=== PATIENT | male | born 1960 | race African-American/Black ===

== ENCOUNTER 2017-01-22 15:00 | Observation (INO) | payer OTHER ==
[~2017-01-22] VITALS: Ht 175.3 cm; Wt 105.4 kg
[~2017-01-22 15:00] MED LIST: AMLODIPINE BESY10 MG PO; APRESOLINE25 MG PO; BENICAR HCT 401 EAC1 PO; CEFDINIR300 MG PO; COREG12.5 M1 PO; COZAAR100 MG PO; COZAAR50 MG PO; FLEXERIL10 MG PO; HYDROCHLOROTHIA25 MG PO; LABETALOL HCL100 MG PO; LABETALOL HCL200 MG PO; LASIX20 MG PO; LIPITOR40 MG PO; LO-DOSE ASPIRIN81 M1 PO; LOSARTAN POTASS50 MG PO; METOPROLOL SUC100 MG PO; METOPROLOL TART50 MG PO; MOTRIN600 MG PO; NORCO 5/3251 TABLET PO; THERAGRAN1 TABLET PO; TOPROL XL100 MG PO; TRAMADOL HCL50 MG PO; VENTOLIN HFA18 GM IH
[2017-01-22 15:48] LABS: HEMATOCRIT 39.5 % (38.0-50.0); MCH 28.9 PG (29.0-34.0); MCHC 36.5 G/DL (30.0-36.0); MCV 79.2 FL (86-99); RBC DIS.WIDTH-CV 14.1 % (11.8-14.6); RBC DIS.WIDTH-SD 40.3 % (39-53); RED BLOOD COUNT 4.99 M/uL (4.00-5.50); WHITE BLOOD COUNT 7.6 K/uL (4.1-10.2)
[2017-01-22 16:04] LABS: CHLORIDE 110 mEq/L (99-109); POTASSIUM 3.8 mEq/L (3.7-5.4); SODIUM 141 mEq/L (136-147)
[2017-01-22 16:06] LABS: GLUCOSE 104 mg/dL (70-99)
[2017-01-22 16:07] LABS: ANION GAP 9 MEQ/L (2-14)
[2017-01-22 16:10] LABS: GFR ESTIMATE (CALCULATED) > 59 mL/min/
[2017-01-22 16:11] LABS: UREA NITROGEN (BUN) 19 mg/dL (9-23)
[2017-01-22 16:17] LABS: TROP-I INTERPRETATION NEGATIVE; TROPONIN-I < 0.01 ng/mL (0.0-0.30)
[2017-01-22 16:30] LABS: HEMATOLOGY COMMENT 1 SN; PLAT.SUFFICIENCY ADEQUATE; PLATELET COUNT 229 K/uL (156-360)
[2017-01-22] MEDS ORDERED: VALSARTAN-HCTZ1 EAC3 PO (16:46)
[2017-01-22] MEDS ORDERED: METOPROLOL SUCC50 MG PO (16:47)
[2017-01-22] MEDS ORDERED: TIZANIDINE HCL2 MG PO (16:48)
[2017-01-22] MEDS ORDERED: INCRUSE ELLI62.5 MCG IH (18:02)
[2017-01-22] MEDS ORDERED: PROTONIX40 MG PO (18:02)
[2017-01-22 19:42] LABS: TROP-I INTERPRETATION NEGATIVE; TROPONIN-I < 0.01 ng/mL (0.0-0.30)
[2017-01-22 20:35] VITALS: BP 142/87
[2017-01-22 20:47] LABS: DIRECT BILIRUBIN 0.5 mg/dL (0.0-0.3); SAMPLE HEMOLYSIS CHECK 0; SAMPLE ICTERIC CHECK 0; SAMPLE LIPEMIA CHECK 0; TOTAL BILIRUBIN 1.4 MG/DL (0.0-1.0)
[2017-01-22 20:53] LABS: ALKALINE PHOSPHATASE 257 IU/L (3-129); HDL CHOLESTEROL 55 MG/DL (Desirable>=40); LDL CHOLESTEROL 103 mg/dL (Desirable<100); LIPASE 123 U/L (1.0-51.0); NON-HDL CHOLESTEROL 143 mg/dL (Desirable<160); TOTAL CHOLESTEROL 198 mg/dL (Desirable<200); TRIGLYCERIDES 198 MG/DL (Normal: <150)
[2017-01-22 21:25] LABS: Estimated Average Glucose 111 mg/dL (70-123)
[2017-01-22 22:15] LABS: HEMOGLOBIN A1c (GLYCOHEMOGLOB) 5.5 % HGB (Below 5.7)
[2017-01-23 00:01] VITALS: BP 140/67
[2017-01-23 01:20] LABS: TROP-I INTERPRETATION NEGATIVE; TROPONIN-I < 0.01 ng/mL (0.0-0.30)
[2017-01-23 01:22] LABS: ADD MIUA? NO; BILIRUBIN NEGATIVE; BLOOD NEGATIVE; COLOR YELLOW ((YELLOW)); GLUCOSE (STRIP) NEGATIVE; KETONES NEGATIVE; LEUKOCYTES NEGATIVE; NITRITE NEGATIVE; PROTEIN (STRIP) NEGATIVE; SPECIFIC GRAVITY 1.013 (1.000-1.030); UCUL ADDED? NO
[2017-01-23 09:06] LABS: TROP-I INTERPRETATION NEGATIVE; TROPONIN-I < 0.01 ng/mL (0.0-0.30)
[2017-01-23 09:46] LABS: ALKALINE PHOSPHATASE 253 IU/L (3-129); DIRECT BILIRUBIN 0.3 mg/dL (0.0-0.3); TOTAL BILIRUBIN 1.3 MG/DL (0.0-1.0)
[2017-01-23 12:03] VITALS: BP 135/85
[2017-01-23 12:56] LABS: HBSG INDEX 0.29
[2017-01-23 12:57] LABS: ANTI-HEPATITIS A VIRUS (IGM) Nonreactive
[2017-01-23 12:59] LABS: ANTI-HEPATITIS B CORE (IGM) Nonreactive; HBC IgM INDEX 0.12
[2017-01-23 13:18] LABS: HPCA INDEX 13.72
[2017-01-23 16:35] VITALS: BP 132/82
[2017-01-23 19:59] LABS: AMYLASE 57 IU/L (1-118)
[2017-01-23 20:30] VITALS: BP 119/81
[2017-01-23 23:40] VITALS: BP 134/72
[2017-01-24 05:00] VITALS: BP 140/79
[2017-01-24 07:21] VITALS: BP 142/88
[2017-01-24 10:49] VITALS: BP 158/73
[2017-01-24 10:58] LABS: EOSINOPHIL (%) 2.3 % (0-5); EOSINOPHIL COUNT 0.2 K/uL (0-0.3); HEMATOCRIT 41.1 % (38.0-50.0); IMMATURE GRANULOCYTE (%) 0.5 % (0.0-0.7); INSTRUMENT ABS NEUTROPHIL CT 4.2 K/uL; LYMPHOCYTE COUNT 2.6 K/uL (1.0-2.8); MCH 28.6 PG (29.0-34.0); MCHC 35.5 G/DL (30.0-36.0); MCV 80.6 FL (86-99); MEAN PLAT.VOLUME 11.7 uM^3 (9.0-12.4); MONOCYTE COUNT 0.7 K/uL (0-0.8); NEUTROPHIL (%) 54.3 % (45-76); NEUTROPHIL COUNT 4.2 K/uL (1.8-6.4); PLATELET COUNT 243 K/uL (156-360); RBC DIS.WIDTH-CV 14.4 % (11.8-14.6); RBC DIS.WIDTH-SD 42.2 % (39-53); WHITE BLOOD COUNT 7.8 K/uL (4.1-10.2)
[2017-01-24 11:51] LABS: ALKALINE PHOSPHATASE 248 IU/L (3-129); ANION GAP 7 MEQ/L (2-14); CHLORIDE 103 MEQ/L (99-109); DIRECT BILIRUBIN 0.4 mg/dL (0.0-0.3); GFR ESTIMATE (CALCULATED) > 59 mL/min/; GLUCOSE 97 mg/dL (70-99); LIPASE 54 U/L (1.0-51.0); POTASSIUM 4.4 MEQ/L (3.7-5.4); SAMPLE HEMOLYSIS CHECK 0; SAMPLE ICTERIC CHECK 0; SAMPLE LIPEMIA CHECK 0; SODIUM 138 MEQ/L (136-147); TOTAL BILIRUBIN 1.2 MG/DL (0.0-1.0); UREA NITROGEN (BUN) 21 mg/dL (9-23)
[2017-01-24] MEDS ORDERED: VALSARTAN160 MG PO (12:08)
[2017-01-24] MEDS ORDERED: ASPIR-LOW81 MG PO (12:08)
== END 2017-01-24 13:21 | disposition home or self-care (01) ==
LOC: EME 15:00 → 5WEST 19:14 → EDOF 19:14 → 5WEST 20:13
PROVIDERS: Hospitalist; Nurse Practitioner Family
DX: R07.89 Other chest pain (principal); G45.9 Transient cerebral ischemic attack, unspecified; R47.01 Aphasia; I11.0 Hypertensive heart disease with heart failure; I50.9 Heart failure, unspecified; G43.909 Migraine, unspecified, not intractable, without status migrainosus; K21.9 Gastro-esophageal reflux disease without esophagitis; F17.200 Nicotine dependence, unspecified, uncomplicated; J44.9 Chronic obstructive pulmonary disease, unspecified; E78.5 Hyperlipidemia, unspecified; K80.50 Calculus of bile duct without cholangitis or cholecystitis without obstruction; R79.89 Other specified abnormal findings of blood chemistry; B19.20 Unspecified viral hepatitis C without hepatic coma; E83.52 Hypercalcemia; I42.9 Cardiomyopathy, unspecified; E66.9 Obesity, unspecified; Z68.34 Body mass index [BMI] 34.0-34.9, adult; R47.02 Dysphasia; G47.30 Sleep apnea, unspecified; I34.0 Nonrheumatic mitral (valve) insufficiency
CPT/HCPCS: 70140; 70450; 70551; 71020; 74177; 74183; 80048; 80053; 80061; 80074; 80076; 80400; 81003; 82024 90; 82150; 82248; 82533 91; 83036; 83690; 84484; 85025; 85027; 93005; 93880; 94640; 94640 76; 99281; 99285; G0378

== ENCOUNTER 2017-02-09 14:58 | Inpatient (IN) | payer OTHER ==
[~2017-02-09] VITALS: Ht 175.3 cm; Wt 97.7 kg
[~2017-02-09 14:58] MED LIST changes: +ASPIR-LOW81 MG PO; +INCRUSE ELLI62.5 MCG IH; +METOPROLOL SUCC50 MG PO; +PROTONIX40 MG PO; +TIZANIDINE HCL2 MG PO; +VALSARTAN-HCTZ1 EAC3 PO; +VALSARTAN160 MG PO
[2017-02-09 15:47] LABS: HEMATOCRIT 37.4 % (38.0-50.0); MCH 28.8 PG (29.0-34.0); MCHC 37.2 G/DL (30.0-36.0); MCV 77.6 FL (86-99); MEAN PLAT.VOLUME 12.1 uM^3 (9.0-12.4); PLATELET COUNT 217 K/uL (156-360); RBC DIS.WIDTH-CV 14.6 % (11.8-14.6); RBC DIS.WIDTH-SD 40.6 % (39-53); RED BLOOD COUNT 4.82 M/uL (4.00-5.50)
[2017-02-09 15:48] LABS: ADD MIUA? NO; BILIRUBIN SMALL; BLOOD NEGATIVE; COLOR AMBER ((YELLOW)); GLUCOSE (STRIP) NEGATIVE; KETONES NEGATIVE; LEUKOCYTES NEGATIVE; NITRITE NEGATIVE; PROTEIN (STRIP) NEGATIVE; SPECIFIC GRAVITY 1.014 (1.000-1.030); UCUL ADDED? NO
[2017-02-09 15:57] LABS: INTER. NORMALIZED RATIO 1.1; PROTHROMBIN TIME 11.4 (9.2-11.2); PTT 26.2 (25-32)
[2017-02-09 15:58] LABS: CHLORIDE 108 mEq/L (99-109); POTASSIUM 3.8 mEq/L (3.7-5.4); SODIUM 141 mEq/L (136-147)
[2017-02-09 16:00] LABS: GLUCOSE 115 mg/dL (70-99)
[2017-02-09 16:01] LABS: ANION GAP 11 MEQ/L (2-14)
[2017-02-09 16:02] LABS: TOTAL BILIRUBIN 7.2 mg/dL (0.0-1.0)
[2017-02-09 16:03] LABS: ALKALINE PHOSPHATASE 299 IU/L (3-129)
[2017-02-09 16:04] LABS: GFR ESTIMATE (CALCULATED) > 59 mL/min/
[2017-02-09 16:05] LABS: UREA NITROGEN (BUN) 13 mg/dL (9-23)
[2017-02-09 16:07] LABS: LIPASE 89 U/L (1.0-51.0)
[2017-02-09 17:50] LABS: AMYLASE 81 IU/L (1-118)
[2017-02-09] MEDS ORDERED: DIOVAN HCT 31 TABLE1 PO (18:18)
[2017-02-09] MEDS ORDERED: LO-DOSE ASPIRIN81 M2 PO (18:18)
[2017-02-09] MEDS ORDERED: TUMS500 MG PO (18:19)
[2017-02-09] MEDS ORDERED: ERGOCALCIF50000 UNIT PO (18:19)
[2017-02-09 21:10] VITALS: BP 150/96
[2017-02-09 23:36] VITALS: BP 172/80
[2017-02-10] VITALS (7 sets, daily range): BP systolic 145–177; BP diastolic 89–99
[2017-02-10 07:10] LABS: HEMATOCRIT 35.9 % (38.0-50.0); MCH 28.3 PG (29.0-34.0); MCHC 36.5 G/DL (30.0-36.0); MCV 77.5 FL (86-99); RBC DIS.WIDTH-CV 14.8 % (11.8-14.6); RBC DIS.WIDTH-SD 40.7 % (39-53); RED BLOOD COUNT 4.63 M/uL (4.00-5.50); WHITE BLOOD COUNT 6.9 K/uL (4.1-10.2)
[2017-02-10 07:29] LABS: ANION GAP 8 MEQ/L (2-14); CHLORIDE 105 MEQ/L (99-109); GFR ESTIMATE (CALCULATED) > 59 mL/min/; GLUCOSE 117 mg/dL (70-99); POTASSIUM 4.1 MEQ/L (3.7-5.4); SAMPLE HEMOLYSIS CHECK 0; SAMPLE ICTERIC CHECK 2; SAMPLE LIPEMIA CHECK 0; SODIUM 137 MEQ/L (136-147); UREA NITROGEN (BUN) 15 mg/dL (9-23)
[2017-02-10 08:08] LABS: ALKALINE PHOSPHATASE 254 IU/L (3-129); TOTAL BILIRUBIN 7.7 MG/DL (0.0-1.0)
[2017-02-10 08:42] LABS: MEAN PLAT.VOLUME 11.7 uM^3 (9.0-12.4); PLATELET COUNT 200 K/uL (156-360)
[2017-02-11 07:45] VITALS: BP 169/100
[2017-02-11 09:43] LABS: ALKALINE PHOSPHATASE 248 IU/L (3-129); ANION GAP 9 MEQ/L (2-14); CHLORIDE 103 MEQ/L (99-109); GFR ESTIMATE (CALCULATED) > 59 mL/min/; GLUCOSE 143 mg/dL (70-99); POTASSIUM 3.8 MEQ/L (3.7-5.4); SAMPLE HEMOLYSIS CHECK 0; SAMPLE ICTERIC CHECK 2; SAMPLE LIPEMIA CHECK 0; SODIUM 138 MEQ/L (136-147); TOTAL BILIRUBIN 7.1 MG/DL (0.0-1.0); UREA NITROGEN (BUN) 14 mg/dL (9-23)
== END 2017-02-11 15:17 | disposition home or self-care (01) | DRG 445 ==
LOC: EME 14:58 → 2EAST 18:36 → EDOF 18:36 → 2EAST 20:52
PROVIDERS: Hospitalist; Internal Medicine Gastroenterology; Physician Assistant
DX: K80.51 Calculus of bile duct without cholangitis or cholecystitis with obstruction (principal); I42.9 Cardiomyopathy, unspecified; E80.6 Other disorders of bilirubin metabolism; E78.5 Hyperlipidemia, unspecified; F17.210 Nicotine dependence, cigarettes, uncomplicated; G47.30 Sleep apnea, unspecified; I34.0 Nonrheumatic mitral (valve) insufficiency; I10 Essential (primary) hypertension; K21.9 Gastro-esophageal reflux disease without esophagitis; I25.10 Atherosclerotic heart disease of native coronary artery without angina pectoris; B18.2 Chronic viral hepatitis C; L29.8 Other pruritus; K86.9 Disease of pancreas, unspecified; E66.9 Obesity, unspecified; Z68.31 Body mass index [BMI] 31.0-31.9, adult; Z79.82 Long term (current) use of aspirin
CPT/HCPCS: 74328; 80048; 80053; 80076; 81003; 82150; 82378; 83690; 85027; 85610; 85730; 86301 90; 87081; 88108; 88173; 88305; 93005; 94640; 94640 76; 99281; 99284; C1726; C1757; C1769; C2625; J0330; J1170; J1644; J2405; J3010; J7030

== ENCOUNTER 2017-05-15 09:19 | Emergency (ER) | payer OTHER ==
[~2017-05-15] VITALS: Ht 175.3 cm; Wt 80.9 kg
[~2017-05-15 09:19] MED LIST changes: +DIOVAN HCT 31 TABLE1 PO; +ERGOCALCIF50000 UNIT PO; +LO-DOSE ASPIRIN81 M2 PO; +TUMS500 MG PO
[2017-05-15 10:57] LABS: EOSINOPHIL (%) 3.3 % (0-5); EOSINOPHIL COUNT 0.3 K/uL (0-0.3); HEMATOCRIT 35.9 % (38.0-50.0); IMMATURE GRANULOCYTE (%) 0.4 % (0.0-0.7); INSTRUMENT ABS NEUTROPHIL CT 5.8 K/uL; LYMPHOCYTE COUNT 2.2 K/uL (1.0-2.8); MCH 28.1 PG (29.0-34.0); MCHC 35.7 G/DL (30.0-36.0); MCV 78.9 FL (86-99); MEAN PLAT.VOLUME 11.4 uM^3 (9.0-12.4); MONOCYTE (%) 11.1 % (3-12); MONOCYTE COUNT 1.1 K/uL (0-0.8); NEUTROPHIL (%) 61.2 % (45-76); NEUTROPHIL COUNT 5.8 K/uL (1.8-6.4); PLATELET COUNT 345 K/uL (156-360); RBC DIS.WIDTH-CV 12.9 % (11.8-14.6); RBC DIS.WIDTH-SD 36.6 % (39-53); RED BLOOD COUNT 4.55 M/uL (4.00-5.50); WHITE BLOOD COUNT 9.5 K/uL (4.1-10.2)
[2017-05-15 11:13] LABS: CHLORIDE 106 mEq/L (99-109); POTASSIUM 4.3 mEq/L (3.7-5.4); SODIUM 139 mEq/L (136-147)
[2017-05-15 11:15] LABS: GLUCOSE 109 mg/dL (70-99)
[2017-05-15 11:16] LABS: ANION GAP 11 MEQ/L (2-14)
[2017-05-15 11:17] LABS: TOTAL BILIRUBIN 0.5 mg/dL (0.0-1.0)
[2017-05-15 11:18] LABS: ALKALINE PHOSPHATASE 109 IU/L (3-129)
[2017-05-15 11:19] LABS: GFR ESTIMATE (CALCULATED) > 59 mL/min/
[2017-05-15 11:20] LABS: UREA NITROGEN (BUN) 21 mg/dL (9-23)
[2017-05-15 11:49] LABS: C-REACTIVE PROTEIN 5.5 MG/L (0-10)
[2017-05-15] MEDS ORDERED: KEFLEX500 MG PO (13:00)
[2017-05-15 13:18] VITALS: BP 110/87
[2017-05-15 13:44] LABS: ERTH.SED.RATE 31 MM/HR (0-20)
== END 2017-05-15 13:36 | disposition home or self-care (01) ==
LOC: EME 09:19
PROVIDERS: Emergency Medicine
DX: T81.4XXA Infection following a procedure, initial encounter (principal); Y83.6 Removal of other organ (partial) (total) as the cause of abnormal reaction of the patient, or of later complication, without mention of misadventure at the time of the procedure; I11.0 Hypertensive heart disease with heart failure; I50.9 Heart failure, unspecified; J44.9 Chronic obstructive pulmonary disease, unspecified; K21.9 Gastro-esophageal reflux disease without esophagitis; Z85.07 Personal history of malignant neoplasm of pancreas; M10.9 Gout, unspecified; F17.200 Nicotine dependence, unspecified, uncomplicated
CPT/HCPCS: 74177; 80053; 81003; 85025; 85651; 86140; 99281; 99285; J3010; J7030

== ENCOUNTER 2017-06-19 04:44 | Inpatient (IN) | payer OTHER ==
[~2017-06-19] VITALS: Ht 175.3 cm; Wt 80.9 kg
[~2017-06-19 04:44] MED LIST changes: +COMPAZINE10 MG PO; +FLOMAX0.4 MG PO; +KEFLEX500 MG PO; +ONDANSETRON HCL8 MG PO; +PANTOPRAZOLE SO40 MG PO
[2017-06-19 05:49] LABS: EOSINOPHIL (%) 0 % (0-5); HEMATOCRIT 30.2 % (38.0-50.0); IMMATURE GRANULOCYTE (%) 0.4 % (0.0-0.7); INSTRUMENT ABS NEUTROPHIL CT 9.1 K/uL; LYMPHOCYTE COUNT 0.9 K/uL (1.0-2.8); MCH 28.1 PG (29.0-34.0); MCHC 36.4 G/DL (30.0-36.0); MCV 77.2 FL (86-99); MEAN PLAT.VOLUME 10.8 uM^3 (9.0-12.4); MONOCYTE (%) 3.3 % (3-12); MONOCYTE COUNT 0.3 K/uL (0-0.8); NEUTROPHIL (%) 87.6 % (45-76); NEUTROPHIL COUNT 9.1 K/uL (1.8-6.4); PLATELET COUNT 198 K/uL (156-360); RBC DIS.WIDTH-CV 14.2 % (11.8-14.6); RBC DIS.WIDTH-SD 39.8 % (39-53); RED BLOOD COUNT 3.91 M/uL (4.00-5.50); WHITE BLOOD COUNT 10.4 K/uL (4.1-10.2)
[2017-06-19 05:59] LABS: CHLORIDE 103 mEq/L (99-109); POTASSIUM 3.7 mEq/L (3.7-5.4); SODIUM 135 mEq/L (136-147)
[2017-06-19 06:01] LABS: GLUCOSE 110 mg/dL (70-99)
[2017-06-19 06:02] LABS: ANION GAP 9 MEQ/L (2-14)
[2017-06-19 06:05] LABS: GFR ESTIMATE (CALCULATED) > 59 mL/min/
[2017-06-19 06:06] LABS: UREA NITROGEN (BUN) 16 mg/dL (9-23)
[2017-06-19 08:10] LABS: INTER. NORMALIZED RATIO 1.3; PROTHROMBIN TIME 15.2 SEC (10.2-12.9)
[2017-06-19 08:12] LABS: PTT 28.6 SEC (25-37)
[2017-06-19] MEDS ORDERED: MULTIVITAMIN1 EAC2 PO (09:10)
[2017-06-19] MEDS ORDERED: CREON 241 CAPSULE PO (09:10)
[2017-06-19] MEDS ORDERED: DIOVAN HCT 31 TABLE1 PO (09:10)
[2017-06-19 12:38] VITALS: BP 140/88
[2017-06-19 16:51] VITALS: BP 135/83
[2017-06-19 17:06] LABS: POINT-OF-CARE METER ID UU14314088
[2017-06-19 20:52] LABS: POINT-OF-CARE METER ID UU14174216
[2017-06-20 00:10] VITALS: BP 112/61
[2017-06-20 03:12] LABS: HEMATOCRIT 28.1 % (38.0-50.0); MCHC 35.9 G/DL (30.0-36.0); MCV 77.8 FL (86-99); MEAN PLAT.VOLUME 11.4 uM^3 (9.0-12.4); PLATELET COUNT 191 K/uL (156-360); RBC DIS.WIDTH-CV 13.9 % (11.8-14.6); RBC DIS.WIDTH-SD 39.8 % (39-53); RED BLOOD COUNT 3.61 M/uL (4.00-5.50); WHITE BLOOD COUNT 10.6 K/uL (4.1-10.2)
[2017-06-20 03:35] LABS: CHLORIDE 105 mEq/L (99-109); POTASSIUM 4.3 mEq/L (3.7-5.4); SODIUM 136 mEq/L (136-147)
[2017-06-20 03:37] LABS: GLUCOSE 169 mg/dL (70-99)
[2017-06-20 03:38] LABS: ANION GAP 9 MEQ/L (2-14)
[2017-06-20 03:40] LABS: GFR ESTIMATE (CALCULATED) > 59 mL/min/
[2017-06-20 03:41] LABS: UREA NITROGEN (BUN) 14 mg/dL (9-23)
[2017-06-20 07:21] VITALS: BP 125/70
[2017-06-20 07:53] LABS: POINT-OF-CARE METER ID UU14174216
[2017-06-20 09:13] LABS: INTER. NORMALIZED RATIO 1.3; PROTHROMBIN TIME 14.6 SEC (10.2-12.9)
[2017-06-20 09:15] LABS: PTT 46.4 SEC (25-37)
[2017-06-20 09:46] LABS: VANCOMYCIN, TROUGH 14.4 MCG/ML (10-20)
[2017-06-20 11:12] LABS: POINT-OF-CARE METER ID UU14174216
[2017-06-20 12:14] VITALS: BP 107/65
[2017-06-20 16:21] LABS: POINT-OF-CARE METER ID UU14174216
[2017-06-20 16:50] VITALS: BP 130/70
[2017-06-20 17:32] LABS: INTER. NORMALIZED RATIO 1.2; PROTHROMBIN TIME 13.8 SEC (10.2-12.9)
[2017-06-20 20:51] VITALS: BP 150/90
[2017-06-21 00:20] VITALS: BP 126/80
[2017-06-21 05:28] VITALS: BP 164/89
[2017-06-21 07:33] VITALS: BP 147/82
[2017-06-21 07:50] LABS: INTER. NORMALIZED RATIO 1.2; PROTHROMBIN TIME 13.9 SEC (10.2-12.9)
[2017-06-21 07:53] LABS: PTT 64.9 SEC (25-37)
[2017-06-21 08:03] LABS: POINT-OF-CARE METER ID UU14314088
[2017-06-21 08:34] VITALS: BP 144/80
[2017-06-21] MEDS ORDERED: LOVENOX100 MG/1 M SC (08:43)
[2017-06-21] MEDS ORDERED: NORCO 5/3251 TABLET PO (08:43)
[2017-06-21] MEDS ORDERED: LOVENOX80 MG/0.8 SC (10:25)
[2017-06-21 11:38] LABS: POINT-OF-CARE METER ID UU14174216
== END 2017-06-21 12:08 | disposition home or self-care (01) | DRG 253 ==
LOC: EME 04:44 → EDOF 08:45 → 4EAST 08:45 → ENRESERV 08:46 → 4EAST 12:31 → ENPENDDIS 06-21 09:28 → 4EAST 06-21 12:08
PROVIDERS: Emergency Medicine; Hospitalist; Internal Medicine
PROC: 05PY03Z Removal of Infusion Device from Upper Vein, Open Approach (ICD-10-PCS; principal; 2017-06-20)
DX: I82.C11 Acute embolism and thrombosis of right internal jugular vein (principal); C25.9 Malignant neoplasm of pancreas, unspecified; I11.0 Hypertensive heart disease with heart failure; D63.8 Anemia in other chronic diseases classified elsewhere; I50.9 Heart failure, unspecified; I42.9 Cardiomyopathy, unspecified; K21.9 Gastro-esophageal reflux disease without esophagitis; I87.8 Other specified disorders of veins; E78.5 Hyperlipidemia, unspecified; B19.20 Unspecified viral hepatitis C without hepatic coma; I34.0 Nonrheumatic mitral (valve) insufficiency; G47.33 Obstructive sleep apnea (adult) (pediatric); F17.210 Nicotine dependence, cigarettes, uncomplicated; J43.9 Emphysema, unspecified; M10.9 Gout, unspecified; R13.10 Dysphagia, unspecified; Z79.899 Other long term (current) drug therapy
CPT/HCPCS: 70498; 71275; 76536; 80048; 80202; 82948; 85025; 85027; 85610; 85730; 87040; 87493; 99281; 99285; J1100; J1650; J1815; J2270; J2405; J2543; J3010; J3370; J7030; J7042; J7050; S0028

== ENCOUNTER → 2017-08-22 | Outpatient (CLI) | payer OTHER ==
[~2017-08-22] MED LIST changes: +CREON 241 CAPSULE PO; +LOVENOX100 MG/1 M SC; +LOVENOX80 MG/0.8 SC; +MULTIVITAMIN1 EAC2 PO
== END | disposition home or self-care (01) ==
LOC: PICC 09:54
DX: C25.9 Malignant neoplasm of pancreas, unspecified (principal)
CPT/HCPCS: C1894

== ENCOUNTER 2017-10-05 14:03 | Emergency (ER) | payer OTHER ==
[~2017-10-05] VITALS: Ht 175.3 cm; Wt 82.2 kg
[2017-10-05 15:03] LABS: HEMATOCRIT 26.9 % (38.0-50.0); MCH 32.2 PG (29.0-34.0); MCHC 37.2 G/DL (30.0-36.0); MCV 86.5 FL (86-99); RBC DIS.WIDTH-CV 13.2 % (11.8-14.6); RBC DIS.WIDTH-SD 41.3 % (39-53); RED BLOOD COUNT 3.11 M/uL (4.00-5.50); WHITE BLOOD COUNT 5.9 K/uL (4.1-10.2)
[2017-10-05 15:05] LABS: PLATELET COUNT 112 K/uL (156-360)
[2017-10-05 15:21] LABS: CHLORIDE 108 mEq/L (99-109); POTASSIUM 3.9 mEq/L (3.7-5.4); SODIUM 139 mEq/L (136-147)
[2017-10-05 15:22] LABS: GLUCOSE 88 mg/dL (70-99)
[2017-10-05 15:24] LABS: TROP-I INTERPRETATION NEGATIVE; TROPONIN-I < 0.01 ng/mL (0.0-0.30)
[2017-10-05 15:26] LABS: CREATININE 0.8 mg/dL (0.6-1.3); GFR ESTIMATE (CALCULATED) > 59 mL/min/ (58.99-99999)
[2017-10-05 15:27] LABS: UREA NITROGEN (BUN) 14 mg/dL (9-23)
[2017-10-05 17:30] LABS: TROP-I INTERPRETATION NEGATIVE; TROPONIN-I < 0.01 ng/mL (0.0-0.30)
[2017-10-05 17:51] VITALS: BP 137/92
== END 2017-10-05 18:09 | disposition home or self-care (01) ==
LOC: EME 14:03
PROVIDERS: Emergency Medicine
DX: R07.9 Chest pain, unspecified (principal); R06.02 Shortness of breath; J98.11 Atelectasis; Z86.718 Personal history of other venous thrombosis and embolism; C25.9 Malignant neoplasm of pancreas, unspecified; Z90.411 Acquired partial absence of pancreas; Z92.21 Personal history of antineoplastic chemotherapy; M47.894 Other spondylosis, thoracic region; I10 Essential (primary) hypertension; Z90.49 Acquired absence of other specified parts of digestive tract; F17.200 Nicotine dependence, unspecified, uncomplicated
CPT/HCPCS: 71046; 71275; 80048; 84484; 85027; 85379; 93005; 99281; 99284; J2405

== ENCOUNTER 2017-10-30 07:59 | Emergency (ER) | payer OTHER ==
[~2017-10-30] VITALS: Ht 175.3 cm; Wt 82.5 kg
[2017-10-30 09:12] LABS: BASOPHIL (%) 0.2 % (0-1); EOSINOPHIL (%) 1.5 % (0-5); EOSINOPHIL COUNT 0.1 K/uL (0-0.3); HEMOGLOBIN 9.2 G/DL (12.5-16.6); IMMATURE GRANULOCYTE (%) 0.2 % (0.0-0.7); LYMPHOCYTE (%) 11.5 % (15-42); LYMPHOCYTE COUNT 0.5 K/uL (1.0-2.8); MCH 30.9 PG (29.0-34.0); MCHC 36.8 G/DL (30.0-36.0); MCV 83.9 FL (86-99); MONOCYTE (%) 9.7 % (3-12); MONOCYTE COUNT 0.4 K/uL (0-0.8); NEUTROPHIL (%) 76.9 % (45-76); NEUTROPHIL COUNT 3.1 K/uL (1.8-6.4); RBC DIS.WIDTH-CV 14.1 % (11.8-14.6); RBC DIS.WIDTH-SD 42.8 % (39-53); RED BLOOD COUNT 2.98 M/uL (4.00-5.50)
[2017-10-30 09:13] LABS: PLATELET COUNT 194 K/uL (156-360)
[2017-10-30 09:21] LABS: INTER. NORMALIZED RATIO 1.2
[2017-10-30 09:23] LABS: ALBUMIN 3.5 g/dL (3.2-4.8); CHLORIDE 105 mEq/L (99-109); SODIUM 139 mEq/L (136-147)
[2017-10-30 09:25] LABS: GLUCOSE 115 mg/dL (70-99); TOTAL PROTEIN 6.6 g/dL (6.4-8.3)
[2017-10-30 09:27] LABS: TOTAL BILIRUBIN 0.6 mg/dL (0.0-1.0)
[2017-10-30 09:29] LABS: ALKALINE PHOSPHATASE 159 IU/L (3-129); GFR ESTIMATE (CALCULATED) > 59 mL/min/ (58.99-99999)
[2017-10-30 09:30] LABS: UREA NITROGEN (BUN) 17 mg/dL (9-23)
[2017-10-30 09:31] LABS: AST (GOT) 17 IU/L (2-34)
[2017-10-30 09:32] LABS: ALT (GPT) 19 IU/L (3-49); LIPASE 34 U/L (1.0-51.0)
[2017-10-30 09:33] LABS: CREATINE KINASE 32 IU/L (1-294); TOTAL CK 32 IU/L (1-294)
[2017-10-30 09:42] LABS: CK-MB 0.4 ng/mL (0.0-4.9); CKMB RELATIVE INDEX 1.3 (0.0-3.9)
[2017-10-30 10:23] VITALS: BP 118/71
== END 2017-10-30 10:32 | disposition home or self-care (01) ==
LOC: EME 07:59
PROVIDERS: Emergency Medicine
DX: M79.1 Myalgia (principal); M79.7 Fibromyalgia; Z85.07 Personal history of malignant neoplasm of pancreas
CPT/HCPCS: 80053; 82550; 82553; 83690; 85025; 85610; 93970; 99281; 99284